=== PATIENT | male | born 1945 | race Caucasian/White ===

== ENCOUNTER 2019-03-26 02:48 | Emergency (ER) | payer MEDICARE, OTHER ==
[~2019-03-26] VITALS: Ht 165.1 cm; Wt 99.8 kg
[2019-03-26 04:04] LABS: BASO # 0.1 x10^3/uL (0.0-0.2); BASO % 1 % (0-3); EOS # 0.1 x10^3/uL (0.0-0.7); EOS % 1 % (0-3); HEMATOCRIT 40.4 % (39.0-53.0); HEMOGLOBIN 13.9 g/dL (13.0-17.5); LYMPH % 10 % (24-48); MEAN CORPUSCULAR HEMOGLOBIN 30 pg (25-35); MEAN CORPUSCULAR HGB CONC 34 g/dL (31-37); MEAN CORPUSCULAR VOLUME 86 fL (79-100); MONO # 0.8 x10^3/uL (0.0-1.1); MONO % 8 % (0-9); NEUT # 8.2 x10^3/uL (1.8-7.7); NEUT % 80 % (31-73); PLATELET COUNT 269 x10^3/uL (140-400); RED BLOOD COUNT 4.69 x10^6/uL (4.30-5.70); RED CELL DISTRIBUTION WIDTH 12.9 % (11.5-14.5); WHITE BLOOD COUNT 10.2 x10^3/uL (4.0-11.0)
--- NOTE | 2019-03-26 04:08 | PHYS DOC ---
Past Medical History Past Medical History: High Cholesterol, Hypertension (FABIEN AIKEN MD) Past Surgical History: No Surgical History (FABIEN AIKEN MD) Alcohol Use: Heavy Drug Use: None (FABIEN AIKEN MD) Adult General Chief Complaint Chief Complaint: ABDOMINAL PAIN HPI HPI 74-year-old male with underlying history of hypertension, diabetes, hyperlipidemia presents to the emergency department with complaints of right lower quadrant abdominal pain. States pain started around 8 PM describes as a constant sensation. He's had nausea as well as vomiting. Denies any diarrhea or change in stools. Patient has no history of surgical procedures. Nothing makes pain worse, nothing makes pain better. (FABIEN AIKEN MD) Review of Systems Review of Systems Constitutional: Denies fever or chills [] Respiratory: Denies cough or shortness of breath [] Cardiovascular: No additional information not addressed in HPI [] GI: Positive abdominal pain, nausea, vomiting, denies bloody stools or diarrhea [] : Denies dysuria or hematuria [] Musculoskeletal: Denies back pain or joint pain [] Neurologic: Denies headache, focal weakness or sensory changes [] All other systems were reviewed and found to be within normal limits, except as documented in this note. (FABIEN AIKEN MD) Current Medications Current Medications Current Medications Medications (Trade) Dose Ordered Sig/Demond Start Time Stop Time Status Last Admin Dose Admin Morphine Sulfate (Morphine Sulfate) 4 mg 1X ONCE 03/26/19 07:00 03/26/19 07:01 DC 03/26/19 07:06 4 MG Ondansetron HCl (Zofran) 4 mg 1X ONCE 03/26/19 06:00 03/26/19 06:02 DC 03/26/19 05:55 4 MG Sodium Chloride 1,000 ml @ 1,000 mls/hr 1X ONCE 03/26/19 05:45 03/26/19 06:44 DC 03/26/19 05:53 1,000 MLS/HR (HINA FORTE MD) Allergies Allergies Allergies Coded Allergies Type Severity Reaction Last Updated Verified No Known Drug Allergies 03/26/19 No (HINA FORTE MD) Physical Exam Physical Exam Constitutional: Well developed, well nourished, no acute distress, non-toxic appearance. [] HENT: Normocephalic, atraumatic, bilateral external ears normal, oropharynx moist, no oral exudates, nose normal. [] Cardiovascular:Heart rate regular rhythm, no murmur [] Lungs & Thorax: Bilateral breath sounds clear to auscultation [] Abdomen: Bowel sounds normal, soft, no tenderness, no masses, no pulsatile masses, tenderness palpation to the right lower quadrant, no rebound tenderness on exam [] Skin: Warm, dry, no erythema, no rash. [] Back: No tenderness, no CVA tenderness. [] Extremities: No tenderness, no cyanosis, no edema. [] Neurologic: Alert and oriented X 3, no focal deficits noted. [] Psychologic: Affect normal, judgement normal, mood normal. [] (FABIEN AIKEN MD) Current Patient Data Vital Signs Vital Signs Date Time Temp Pulse Resp B/P (MAP) Pulse Ox O2 Delivery O2 Flow Rate FiO2 03/26/19 07:06 20 99 Room Air 03/26/19 06:21 69 180/82 (114) 03/26/19 03:15 99.2 99.2 (HINA FORTE MD) Lab Values Laboratory Tests Test 03/26/19 03:59 03/26/19 05:00 White Blood Count 10.2 x10^3/uL (4.0-11.0) Red Blood Count 4.69 x10^6/uL (4.30-5.70) Hemoglobin 13.9 g/dL (13.0-17.5) Hematocrit 40.4 % (39.0-53.0) Mean Corpuscular Volume 86 fL (79-100) Mean Corpuscular Hemoglobin 30 pg (25-35) Mean Corpuscular Hemoglobin Concent 34 g/dL (31-37) Red Cell Distribution Width 12.9 % (11.5-14.5) Platelet Count 269 x10^3/uL (140-400) Neutrophils (%) (Auto) 80 % (31-73) H Lymphocytes (%) (Auto) 10 % (24-48) L Monocytes (%) (Auto) 8 % (0-9) Eosinophils (%) (Auto) 1 % (0-3) Basophils (%) (Auto) 1 % (0-3) Neutrophils # (Auto) 8.2 x10^3/uL (1.8-7.7) H Lymphocytes # (Auto) 1.0 x10^3/uL (1.0-4.8) Monocytes # (Auto) 0.8 x10^3/uL (0.0-1.1) Eosinophils # (Auto) 0.1 x10^3/uL (0.0-0.7) Basophils # (Auto) 0.1 x10^3/uL (0.0-0.2) Sodium Level 139 mmol/L (136-145) Potassium Level 4.5 mmol/L (3.5-5.1) Chloride Level 104 mmol/L (98-107) Carbon Dioxide Level 26 mmol/L (21-32) Anion Gap 9 (6-14) Blood Urea Nitrogen 22 mg/dL (8-26) Creatinine 1.7 mg/dL (0.7-1.3) H Estimated GFR (Cockcroft-Gault) 39.4 BUN/Creatinine Ratio 13 (6-20) Glucose Level 168 mg/dL (70-99) H Calcium Level 10.2 mg/dL (8.5-10.1) H Total Bilirubin 0.4 mg/dL (0.2-1.0) Aspartate Amino Transferase (AST) 23 U/L (15-37) Alanine Aminotransferase (ALT) 26 U/L (16-63) Alkaline Phosphatase 34 U/L (46-116) L Total Protein 7.3 g/dL (6.4-8.2) Albumin 4.2 g/dL (3.4-5.0) Albumin/Globulin Ratio 1.4 (1.0-1.7) Urine Collection Type Unknown Urine Color Yellow Urine Clarity Cloudy Urine pH 7.5 Urine Specific [place] 1.015 Urine Protein Negative mg/dL (NEG-TRACE) Urine Glucose (UA) 100 mg/dL (NEG) Urine Ketones (Stick) Negative mg/dL (NEG) Urine Blood Negative (NEG) Urine Nitrite Negative (NEG) Urine Bilirubin Negative (NEG) Urine Urobilinogen Dipstick 0.2 mg/dL (0.2 mg/dL) Urine Leukocyte Esterase Negative (NEG) Urine RBC 6-10 /HPF (0-2) Urine WBC 1-4 /HPF (0-4) Urine Squamous Epithelial Cells Occ /LPF Urine Amorphous Sediment Present /HPF Urine Bacteria 0 /HPF (0-FEW) Urine Mucus Slight /LPF Laboratory Tests 03/26/19 03:59 Laboratory Tests 03/26/19 03:59 (HINA FORTE MD) Lab Values Laboratory Tests Test 03/26/19 03:59 03/26/19 05:00 White Blood Count 10.2 x10^3/uL (4.0-11.0) Red Blood Count 4.69 x10^6/uL (4.30-5.70) Hemoglobin 13.9 g/dL (13.0-17.5) Hematocrit 40.4 % (39.0-53.0) Mean Corpuscular Volume 86 fL (79-100) Mean Corpuscular Hemoglobin 30 pg (25-35) Mean Corpuscular Hemoglobin Concent 34 g/dL (31-37) Red Cell Distribution Width 12.9 % (11.5-14.5) Platelet Count 269 x10^3/uL (140-400) Neutrophils (%) (Auto) 80 % (31-73) H Lymphocytes (%) (Auto) 10 % (24-48) L Monocytes (%) (Auto) 8 % (0-9) Eosinophils (%) (Auto) 1 % (0-3) Basophils (%) (Auto) 1 % (0-3) Neutrophils # (Auto) 8.2 x10^3/uL (1.8-7.7) H Lymphocytes # (Auto) 1.0 x10^3/uL (1.0-4.8) Monocytes # (Auto) 0.8 x10^3/uL (0.0-1.1) Eosinophils # (Auto) 0.1 x10^3/uL (0.0-0.7) Basophils # (Auto) 0.1 x10^3/uL (0.0-0.2) Sodium Level 139 mmol/L (136-145) Potassium Level 4.5 mmol/L (3.5-5.1) Chloride Level 104 mmol/L (98-107) Carbon Dioxide Level 26 mmol/L (21-32) Anion Gap 9 (6-14) Blood Urea Nitrogen 22 mg/dL (8-26) Creatinine 1.7 mg/dL (0.7-1.3) H Estimated GFR (Cockcroft-Gault) 39.4 BUN/Creatinine Ratio 13 (6-20) Glucose Level 168 mg/dL (70-99) H Calcium Level 10.2 mg/dL (8.5-10.1) H Total Bilirubin 0.4 mg/dL (0.2-1.0) Aspartate Amino Transferase (AST) 23 U/L (15-37) Alanine Aminotransferase (ALT) 26 U/L (16-63) Alkaline Phosphatase 34 U/L (46-116) L Total Protein 7.3 g/dL (6.4-8.2) Albumin 4.2 g/dL (3.4-5.0) Albumin/Globulin Ratio 1.4 (1.0-1.7) Urine Collection Type Unknown Urine Color Yellow Urine Clarity Cloudy Urine pH 7.5 Urine Specific [place] 1.015 Urine Protein Negative mg/dL (NEG-TRACE) Urine Glucose (UA) 100 mg/dL (NEG) Urine Ketones (Stick) Negative mg/dL (NEG) Urine Blood Negative (NEG) Urine Nitrite Negative (NEG) Urine Bilirubin Negative (NEG) Urine Urobilinogen Dipstick 0.2 mg/dL (0.2 mg/dL) Urine Leukocyte Esterase Negative (NEG) Urine RBC 6-10 /HPF (0-2) Urine WBC 1-4 /HPF (0-4) Urine Squamous Epithelial Cells Occ /LPF Urine Amorphous Sediment Present /HPF Urine Bacteria 0 /HPF (0-FEW) Urine Mucus Slight /LPF Laboratory Tests 03/26/19 03:59 Laboratory Tests 03/26/19 03:59 (FABIEN AIKEN MD) EKG EKG [] (FABIEN AIKEN MD) Radiology/Procedures Radiology/Procedures [] (FABIEN AIKEN MD) Radiology/Procedures PROCEDURE: CT ABD PEL W/ORAL CONTRST ONLY Examination: CT ABD PEL W/ORAL CONTRST ONLY History: Right lower quadrant pain Comparison/Correlation: None Findings: Axial images of the abdomen and pelvis were obtained following oral contrast. Sagittal and coronal reformatted images were provided. Visualized lung bases are clear. Small sliding hiatal hernia is suggested. Circumferential wall thickening of the distal esophagus may represent underlying esophagitis possibly due to reflux. Diffuse fatty infiltration of the liver is present. The gallbladder fossa is unremarkable. Spleen, pancreas, and adrenal glands are normal. Right hydronephrosis and hydroureter is present due to a 0.3 cm diameter ureterovesical junction calculus. Right perinephric stranding is present. Left interpolar parapelvic cyst is present measuring up to 4.1 cm diameter. A 0.9 cm x 5.7 cm x 6 mL longitudinal cystic structure with Hounsfield units of 14 mm present subjacent to the inferior tip of the right hepatic lobe. There is no extraluminal gas. No bowel obstruction. Diverticulosis of the colon is present. Appendix is normal. Prostate gland is enlarged measuring 5.1 cm transverse. Bony structures are unremarkable for the patient's age. Impression: Diffuse fatty infiltration of the liver. Right ureterovesical junction obstructing calculus with associated hydronephrosis and hydroureter. Cystic structure inferior to the right hepatic lobe is present. This may represent a duplication cyst or other benign process. Ultrasound correlation is recommended to further characterize. (HINA FORTE MD) Course & Med Decision Making Course & Med Decision Making Pertinent Labs and Imaging studies reviewed. (See chart for details) []74-year-old male with underlying history of hypertension, diabetes, hyper lipidemia presents to the emergency department with complaints of right lower quadrant abdominal pain. States pain started around 8 PM describes as a constant sensation. He's had nausea as well as vomiting. Denies any diarrhea or change in stools. Patient has no history of surgical procedures. Nothing makes pain worse, nothing makes pain better. Patient given morphine 4 mg, Zofran 4 mg. Pain improved. Awaiting CT scan - currently drinking contrast. Care transferred/discussed case with Dr. Forte. (FABIEN AIKEN MD) Course & Med Decision Making 6:15 AM: Patient care assumed at shift change. States that about 8 PM yesterday evening developed some right-sided lower abdominal discomfort, is came on relatively suddenly, and has persisted. He has not had any vomiting. He states he had a similar episode on Monday which lasted 4 hours and resolved. Denies any hematuria. He has not had any chest pain or shortness of breath. PHYSICAL EXAM: CONSTITUTIONAL: Well developed, well nourished HEAD: normocephalic, atraumatic EENT: PERRL, EOMI. Conjunctivae normal color, sclerae non-icteric; moist mucous membranes. NECK: Supple, non-tender; no meningismus. LUNGS: Lungs CTA, breathing even and unlabored. Normal air movement. HEART: Regular rate and rhythm, no murmur CHEST: No deformity; non-tender ABDOMEN: The abdomen is soft, there is mild tenderness to palpation to the right lower abdomen, somewhat lateral to McBurney's point, without rebound or guardi ng. The remainder the abdomen is soft and non-tender, no masses or bruits. EXTREM: Normal ROM; no deformity, no calf tenderness. Normal pulses palpable in all extremities. There is no pedal edema. SKIN: No rash; no diaphoresis NEURO: Alert; normal speech and cognition; CN's grossly intact; strength grossly intact without focal deficit. BACK: No CVA TTP. CT scan is currently pending, and will be reviewed when available. 8:10 AM: The patient's condition remains stable. I discussed test results, including the incidental liver findings on CT of the need for outpatient follow- up, the need for urology follow-up for his kidney stone, home care plan and return precautions. I also discuss his elevated creatinine and the need for close PCP follow-up for renal function monitoring. (HINA FORTE MD) Dragon Disclaimer Dragon Disclaimer This electronic medical record was generated, in whole or in part, using a voice recognition dictation system. (FABIEN AIKEN MD) Departure Departure Impression: Primary Impression: Kidney stone Disposition: HOME, SELF-CARE Condition: STABLE Referrals: James ACEVES MD (PCP) Patient Instructions: Diet for Kidney Stones, Kidney Stones Additional Instructions: Ibuprofen 400mg every 6 hours as needed for pain. Use the prescribed pain medication as needed for pain not controlled by ibuprofen.The prescribed medication may cause drowsiness. Use caution while taking. Strain your urine. If you find a kidney stone, bring it to your urology follow- up appointment, as this may help the urologist to determine what is causing the stone what you might be able to do to prevent this from happening in the future. Scripts Tamsulosin Hcl (FLOMAX) 0.4 Mg Cap.er.24h 1 CAP PO DAILY, #30 CAP 0 Refills Prov: HINA FORTE MD 03/26/19 Hydrocodone/Apap 5-325 (NORCO 5-325 TABLET) 1 Each Tablet 1 TAB PO Q6H PRN for PAIN, #20 TAB Prov: HINA FORTE MD 03/26/19 FABIEN AIKEN MD Mar 26, 2019 04:08 HINA FORTE MD Mar 26, 2019 06:17
[2019-03-26 04:15] LABS: CALCIUM 10.2 mg/dL (8.5-10.1); CREATININE 1.7 mg/dL (0.7-1.3); GFR 39.4; POTASSIUM 4.5 mmol/L (3.5-5.1)
[2019-03-26 04:19] LABS: ALBUMIN 4.2 g/dL (3.4-5.0); ALBUMIN/GLOBULIN RATIO 1.4 (1.0-1.7); TOTAL BILIRUBIN 0.4 mg/dL (0.2-1.0); TOTAL PROTEIN 7.3 g/dL (6.4-8.2)
[2019-03-26] MEDS ORDERED: MORPHINE SULFATE 4 MG/ML VIAL. IV ONE ×2 (04:30→07:00)
[2019-03-26] MEDS ORDERED: ONDANSETRON PF 4 MG/2 ML VIAL. IV ONE ×3 (04:30→08:30)
[2019-03-26 05:10] LABS: BILIRUBIN,URINE NEGATIVE (NEG); CLARITY,URINE CLOUDY; COLOR,URINE YELLOW; NITRITE,URINE NEGATIVE (NEG); PH,URINE 7.5; PROTEIN,URINE NEGATIVE (NEG-TRACE); UROBILINOGEN,URINE 0.2 mg/dL (0.2 mg/dL)
[2019-03-26 05:17] LABS: BACTERIA,URINE 0 /HPF (0-FEW); SQUAMOUS EPITHELIAL CELL,UR OCC /LPF
[2019-03-26 05:18] LABS: AMORPHOUS SEDIMENT,UR PRESENT /HPF
[2019-03-26] MEDS ORDERED: IV NORMAL SALINE 1000ML BAG 1,000 ML IV ONE ×2 (05:45→08:30)
--- NOTE | 2019-03-26 07:47 | RAD ---
Examination: CT ABD PEL W/ORAL CONTRST ONLY History: Right lower quadrant pain Comparison/Correlation: None Findings: Axial images of the abdomen and pelvis were obtained following oral contrast. Sagittal and coronal reformatted images were provided. Visualized lung bases are clear. Small sliding hiatal hernia is suggested. Circumferential wall thickening of the distal esophagus may represent underlying esophagitis possibly due to reflux. Diffuse fatty infiltration of the liver is present. The gallbladder fossa is unremarkable. Spleen, pancreas, and adrenal glands are normal. Right hydronephrosis and hydroureter is present due to a 0.3 cm diameter ureterovesical junction calculus. Right perinephric stranding is present. Left interpolar parapelvic cyst is present measuring up to 4.1 cm diameter. A 0.9 cm x 5.7 cm x 6 mL longitudinal cystic structure with Hounsfield units of 14 mm present subjacent to the inferior tip of the right hepatic lobe. There is no extraluminal gas. No bowel obstruction. Diverticulosis of the colon is present. Appendix is normal. Prostate gland is enlarged measuring 5.1 cm transverse. Bony structures are unremarkable for the patient's age. Impression: Diffuse fatty infiltration of the liver. Right ureterovesical junction obstructing calculus with associated hydronephrosis and hydroureter. Cystic structure inferior to the right hepatic lobe is present. This may represent a duplication cyst or other benign process. Ultrasound correlation is recommended to further characterize. PQRS Compliance Statement: One or more of the following individualized dose reduction techniques were utilized for this examination: 1. Automated exposure control 2. Adjustment of the mA and/or kV according to patient size 3. Use of iterative reconstruction technique Electronically signed by: Nathan Bond MD (03/26/2019 7:44 AM) [facility]
[2019-03-26] MEDS ORDERED: HYDR-3164 PO (08:12)
[2019-03-26] MEDS ORDERED: TAMS0.4C97 PO (08:12)
[2019-03-26] MEDS ORDERED: KETOROLAC 15 MG/ML VIAL. ONE (08:19)
[2019-03-26] MEDS ORDERED: KETOROLAC 15 MG/ML VIAL. IV ONE (08:30)
[2019-03-26] MEDS ORDERED: ONDA4TAB7 PO (08:53)
[2019-03-26 09:00] VITALS: BP 139/69
== END 2019-03-26 09:13 | disposition home or self-care (01) ==
LOC: ER 02:48
DX: N20.0 Calculus of kidney (principal); R11.2 Nausea with vomiting, unspecified; E78.00 Pure hypercholesterolemia, unspecified; I10 Essential (primary) hypertension; F10.20 Alcohol dependence, uncomplicated; Y90.9 Presence of alcohol in blood, level not specified
CPT/HCPCS: 36415; 74176; 80053; 81001; 85025; 96361; 96374; 96375; 96376; 99285; J1885; J2270; J2405; J7030